=== PATIENT | male | born 1985 | race Caucasian/White ===

== ENCOUNTER 2017-11-03 17:05 | Emergency (ER) | payer SELFPAY ==
[2017-11-03] MEDS ORDERED: Tetan/Diph/Pertus SYR(Tdap)* 0.5 ML SYR(BOOSTRIX) use SYR IM ONE (17:12)
[2017-11-03] MEDS ORDERED: Cephalexin CAP* 500 MG PO ONE (18:08)
[2017-11-03 18:17] VITALS: BP 110/81
--- NOTE | 2017-11-03 20:20 | ED ---
Cullen Washington Natalie, scribed for Kenton Bishop MD on 11/03/17 at 1730 . 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 The pt was grinding metal when his cut his hand, but states that he was not actively cutting metal when his skin was cut. He additionally c/o numbness in the right fourth toe. He is not on any medications. 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 dental technician Onset/Duration: Sudden Onset, Lasting Minutes - 30 minutes, Still Present Aggravating: Nothing Alleviating: Nothing Timing: Constant Onset Severity: Mild Current Severity: Mild Pain Intensity: 1 Pain Scale Used: 0-10 Numeric Associated Signs & Symptoms: Numbness - in right fourth toe - Allergy/Home Medications Allergies/Adverse Reactions: Allergies Allergy/AdvReac Type Severity Reaction Status Date / Time No Known Allergies Allergy Unknown Verified 11/03/17 17:11 Reaction Details PMH/Surg Hx/FS Hx/Imm Hx Endocrine/Hematology History: Denies: Hx Diabetes Cardiovascular History: Denies: Hx Hypertension Opthamlomology History: Denies: Hx Legally Blind EENT History: Denies: Hx Deafness Infectious Disease History: No Infectious Disease History: Denies: Traveled Outside the [place] in Last 30 Days - Family History Known Family History: Negative: Blood Disorder Review of Systems Positive: Other - laceration to left hand in between third and fourth fingers Positive: Numbness - in right fourth toe All Other Systems Reviewed And Are Negative: Yes Physical Exam - Summary Physical Exam Summary: Appearance: Well appearing, no pain distress Skin: warm, dry, reflects adequate perfusion, abrasion on middle phalanx of middle finger on left hand, laceration on web space between middle and ring finger 2.5 cm in length on left hand Head/face: normal Eyes: EOMI, CRISTOPHER ENT: normal Neck: supple, non-tender Respiratory: CTA, breath sounds present Cardiovascular: RRR, pulses symmetrical Abdomen: non-tender, soft Bowel Sounds: present Musculoskeletal: normal, strength/ROM intact Neuro: normal, sensory motor intact, A&Ox3 Triage Information Reviewed: Yes Vital Signs On Initial Exam: Initial Vitals Temp Pulse Resp BP Pulse Ox 99.4 F 74 18 118/77 97 11/03/17 17:08 11/03/17 17:08 11/03/17 17:08 11/03/17 17:08 11/03/17 17:08 Vital Signs Reviewed: Yes Procedures - Laceration/Wound Repair 1 Location: Other - web space between middle and ring finger Description: Irregular Anesthesia: Lido - 3cc Length, Depth and Shape: 2.5cm Irrigated w/ Saline (ccs): 0 - irrigated with sink water Suture Type: Vicryl - 4-0 Number of Sutures: 3 - horizontal metro sutures Sterile Dressing Applied?: Yes 2 Location: Other - middle phalanx of middle finger on left hand abrasion Anesthesia: Lido - 3cc Irrigated w/ Saline (ccs): 0 - irrigated with sink water Suture Type: Prolene - 4-0 Number of Sutures: 1 Sterile Dressing Applied?: Yes Diagnostics - Vital Signs Vital Signs Temp Pulse Resp BP Pulse Ox 11/03/17 17:08 99.4 F 74 18 118/77 97 - Laboratory Lab Statement: Any lab studies that have been ordered have been reviewed, and results considered in the medical decision making process. Laceration Repair Course/Dx - Course Course Of Treatment: Patient with laceration the webspace between 2 fingers. This was cleaned extensively after numbing. It was repaired in 2 layers. Laceration was intermediate in complexity. A small skin tear/abrasion was also repaired with a single suture. His tetanus was updated. He was started on antibiotics. He will follow-up for wound recheck with the care clinic and have sutures out in 10 days. - Clinical Impression Provider Diagnoses: Hand laceration Discharge - Sign-Out/Discharge Documenting (check all that apply): Discharge/Admit/Transfer - Pt will be discharged home. - Discharge Plan Condition: Improved Disposition: HOME Prescriptions: Cephalexin CAP* [Keflex CAP*] 500 mg PO TID #21 cap Patient Education Materials: Laceration (ED) Referrals: [facility] [Outside] No Primary Care Phys,NOPCP [Primary Care Provider] - Additional Instructions: Keep clean and dry. Return with concern for infection, worse, new symptoms or other concerns. - Billing Disposition and Condition Condition: IMPROVED Disposition: Home The documentation as recorded by the Cullen rios Natalie accurately reflects the service I personally performed and the decisions made by me, Kenton Bishop MD.
== END 2017-11-03 18:16 | disposition home or self-care (01) ==
LOC: ED 17:05
DX: S61.412A Laceration without foreign body of left hand, initial encounter (principal); W45.8XXA Other foreign body or object entering through skin, initial encounter; Y92.9 Unspecified place or not applicable
CPT/HCPCS: 12001; 90715; 99282; A9270-GY

== ENCOUNTER → 2018-03-24 22:16 | Emergency (ER) | payer BC ==
[~2018-03-24 22:16] MED LIST: Lidocaine 1%* 5 ML VIAL INJ ONE
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
[2018-03-24 23:53] VITALS: BP 0/0
== END | disposition home or self-care (01) ==
LOC: ED 22:16
DX: S61.412A Laceration without foreign body of left hand, initial encounter (principal); W25.XXXA Contact with sharp glass, initial encounter; Y92.9 Unspecified place or not applicable; Z72.0 Tobacco use
CPT/HCPCS: 12001; 99282

== ENCOUNTER 2018-07-20 09:50 | Emergency (ER) | payer BC, OTHER ==
[2018-07-20 10:04] VITALS: BP 128/80
[2018-07-20] MEDS ORDERED: Fluorescein Sodium TOPICAL* 1 MG TEST STRIP OPHTHALMIC ONE (10:14)
--- NOTE | 2018-07-20 10:16 | UC ---
Eye Complaint HPI - HPI Summary HPI Summary: Patient is 32 year old gentleman, who present today to the urgent care with left eye injury that occurred on 07/18/18. 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 He had protective eye wear on but it cam in from side. He reports foreign body sensation, irritation and increased lacrimation. He has been using the eye lubricant drops since He does not use contact lenses He reports that he has had this 6 times in the past. - History of Current Complaint Chief Complaint: UCEye Stated Complaint: POSS METAL IN EYE Time Seen by Provider: 07/20/18 09:53 Hx Obtained From: Patient Pain Intensity: 2 - Allergies/Home Medications Allergies/Adverse Reactions: Allergies Allergy/AdvReac Type Severity Reaction Status Date / Time No Known Allergies Allergy Unknown Verified 11/03/17 17:11 Reaction Details PMH/Surg Hx/FS Hx/Imm Hx - Additional Past Medical History Additional PMH: Foreign body in the eye No significant past medical history Previously Healthy: Yes - Surgical History Surgical History: None - Family History Known Family History: Positive: Non-Contributory Negative: Blood Disorder - Social History Alcohol Use: Weekly Substance Use Type: Marijuana Substance Use Comment - Amount & Last Used: occ Smoking Status (MU): Never Smoked Tobacco Review of Systems All Other Systems Reviewed And Are Negative: Yes Constitutional: Positive: Negative Skin: Positive: Negative Eyes: Positive: Blurred Vision, Drainage, Other - Foreign body sensation ENT: Positive: Negative Respiratory: Positive: Negative Cardiovascular: Positive: Negative Gastrointestinal: Positive: Negative Genitourinary: Positive: Negative Motor: Positive: Negative Neurovascular: Positive: Negative Musculoskeletal: Positive: Negative Neurological: Positive: Negative Psychological: Positive: Negative Is Patient Immunocompromised?: No Physical Exam - Summary Physical Exam Summary: Physical Exam: Const: Appears well. No signs of apparent distress present. Alert and oriented x 3. Musculo: Walks with a normal gait. Head/Face: Atraumatic, normocephalic on inspection. Eyes: EOMI and PERRLA in both eyes. Conjunctivae clear. There discharge/ increased lacrimation. Mild swelling of the eyelids. small sisi of metal noted on the cornea. Examination of eye after fluorescein staining: Small foreign body noted at approximately 6 o'clock position in the central cornea and abrasion noted in the lower half of the cornea in both quadrants ENT: Hearing normal Respiratory: Respirations are unlabored. Lungs Clear to auscultation bilaterally CVS: Regular rate and Rhythm, S1S2 normal , no murmurs identified. Extremities: Peripheral circulation is grossly normal. Pulses 2+ Abdomen : Soft non tender Skin: No lesions or rash located on the upper extremities or on the lower extremities. Neuro: Cranial nerves II to XII intact, motor and sensory intact. DTR Intact bilaterally. Mood is normal. Affect is normal. Triage Information Reviewed: Yes Vital Signs: Initial Vital Signs Temp 98.2 F 07/20/18 09:58 Pulse 72 07/20/18 09:58 Resp 18 07/20/18 09:58 BP 128/80 07/20/18 09:58 Pulse Ox 100 07/20/18 09:58 Vital Signs Reviewed: Yes Procedures - Eye Procedure Left Alcaine Drops Administered: No - used tetracaine 0.5% eyedrops to anesthetize Eye FB Removal: removal w/ needle - a metal sisi in the cornea at approx 6 clock position Eye Complaint Course/Dx - Course Course Of Treatment: During the visit today, a corneal foreign body(small metal sisi) was removed from the left eye after anesthetizing the left eye with tetracaine 0.5% He reported instant relief. I will prescribe the eyedrops to the pharmacy and he will follow up with ophthalmology. Patient expressed understanding . - Differential Dx/Diagnosis Provider Diagnosis: Corneal foreign body, Corneal abrasion Discharge - Sign-Out/Discharge Documenting (check all that apply): Patient Departure All imaging exams completed and their final reports reviewed: No Studies - Discharge Plan Condition: Stable Disposition: HOME Prescriptions: Ciprofloxacin 0.3% OPTH.PETE* [Cipro 0.3% Opth*] 1 drop LEFT EYE Q6H 5 Days #1 btl Patient Education Materials: Eye Foreign Body (ED) Referrals: No Primary Care Phys,NOPCP [Primary Care Provider] - Nacho Birch MD [Medical Doctor] - 2 Days Additional Instructions: Please start using the eyedrops as prescribed to the pharmacy . Follow up with ophthalmology in 2-3 days. Return to Urgent care / ER if symptoms get worse. - Billing Disposition and Condition Condition: STABLE Disposition: Home
[2018-07-20] MEDS ORDERED: Tetracaine 0.5% OPTH.SOL 4 ML* 1 DROP BTL LEFT EYE SCH (10:30)
== END 2018-07-20 10:49 | disposition home or self-care (01) ==
LOC: UCEAST 09:50
DX: T15.02XA Foreign body in cornea, left eye, initial encounter (principal); W20.8XXA Other cause of strike by thrown, projected or falling object, initial encounter; Y92.9 Unspecified place or not applicable; Y99.0 Civilian activity done for income or pay
CPT/HCPCS: 65220; 99212; A9270-GY; G0463